=== PATIENT | male | born 1990 | race Caucasian/White ===

== ENCOUNTER 2023-09-24 18:14 | Emergency (ER) | payer BC, SELFPAY ==
[2023-09-24 18:29] VITALS: BP 153/94; PULSE 83; RESP 16; TEMP 38.3; O2SAT 99
--- NOTE | 2023-09-24 18:45 | ED.FEVER ---
HPI - Fever General Chief Complaint: Fever Stated Complaint: fever,throwing up Time Seen by Provider: 09/24/23 18:45 Source: patient Mode of arrival: ambulatory Limitations: no limitations History of Present Illness HPI Narrative: 32-year-old male presents with complaint fatigue, fever, body aches, chills, nasal congestion for 2 days. Today at work was nauseated having dry heaves. Not nauseated at this time. Was exposed to influenza B by his . All systems reviewed and negative except as noted above. Related Data Allergies Allergy/AdvReac Type Severity Reaction Status Date / Time No Known Allergies Allergy Verified 09/24/23 18:39 Review of Systems Review of Systems: CONSTITUTIONAL: reports fever, chills, or sweats. EYES: Denies visual changes, redness, or discharge. ENT: Reports rhinorrhea, congestion. Denies sore throat, or otalgia. CARDIOVASCULAR: Denies chest pain, palpitations, or edema. RESPIRATORY: Denies cough or dyspnea. GASTROINTESTINAL: Denies abdominal pain, nausea, vomiting, or diarrhea. GENITOURINARY: Denies dysuria or hematuria. SKIN: Denies rash or itching. MUSCULOSKELETAL: Denies back pain, joint pain. Reports myalgia. NEUROLOGIC: reports headache. Denies numbness, or weakness. PSYCHIATRIC: Denies anxiety or depression. All other systems reviewed are negative, except as documented in HPI. PMFSH Comments At time of signature, agree with nursing past medical, surgical, social and family history. There is no relevant family history pertinent to the presenting complaint. Exam Narrative: GENERAL: This is a well-nourished, well-developed patient, patient ill-appearing but in no acute distress HEAD: normocephalic, atraumatic. EYES: PERRL. Sclera clear/white. Vision is grossly intact. EARS: External ears normal, auditory canals clear and without drainage, TMs normal without perforation. Hearing grossly intact. NOSE: External nose normal with no obvious nasal discharge, nares without redness, no rhinorrhea. THROAT: Mucous membranes moist, posterior pharynx clear. NECK: Neck supple, non-tender without lymphadenopathy, masses or thyromegaly. CARDIOVASCULAR: Regular rate and rhythm without murmurs, gallops, or rubs. RESPIRATORY: Clear to auscultation. Breath sounds equal bilaterally. No wheezes, rales, or rhonchi. SKIN: warm, Dry, intact with no suspicious lesions or rash, good texture and turgor. NEURO: awake, alert, and oriented to person, place and time. There were no obvious focal neurologic abnormalities. EXTREMITIES: No joint tenderness, effusion, or edema noted. Course Course Level of Care: Express Care Visit Vital Signs Vital signs: Vital Signs Temperature 38.3 C H 09/24/23 18:29 Pulse Rate 83 09/24/23 18:29 Respiratory Rate 16 09/24/23 18:29 Blood Pressure 153/94 H 09/24/23 18:29 Pulse Oximetry 99 09/24/23 18:29 Oxygen Delivery Room Air 09/24/23 18:29 Temperature 38.3 C H 09/24/23 18:29 Pulse Rate 83 09/24/23 18:29 Respiratory Rate 16 09/24/23 18:29 Blood Pressure 153/94 H 09/24/23 18:29 Pulse Oximetry 99 09/24/23 18:29 Oxygen Delivery Room Air 09/24/23 18:29 reviewed MDM - Fever MDM Narrative Medical decision making narrative: Patient is aware of diagnosis, understands and agrees to treatment plan. Anticipatory guidance given. Patient agrees to follow-up as directed and is aware of reasons to seek care at the emergency department. Portions of this record may have been created with voice recognition software Differential Diagnosis Differential diagnosis: Likely viral infection Lab Data Labs: Influenza A Screen Negative Reference Range: Negative Influenza B Screen Negative Reference Range: Negative Discharge Plan Discharge Clinical Impression: Acute viral syndrome Patient Disposi
== END 2023-09-24 18:59 | disposition home or self-care (01) ==
PROVIDERS: Emergency Provider Nurse Practitioner Family
DX: B34.9 Viral infection, unspecified (principal)
CPT/HCPCS: 87804; 99203; G0463

== ENCOUNTER 2024-12-16 15:34 | Emergency (ER) | payer BC, SELFPAY ==
--- NOTE | 2024-12-16 15:40 | ED_ITS ---
HPI - Nausea/Vomiting/Diarrhea General Chief complaint: Nausea/Vomiting/Diarrhea Stated complaint: threw up, stomach hurts Time Seen by Provider: 12/16/24 15:38 Source: patient Mode of arrival: ambulatory Limitations: no limitations History of Present Illness HPI Narrative: José Miguel is a 34-year-old male patient presenting to the clinic today with complaints of nausea, vomiting and abdominal cramping. He reports his symptoms started around 4:00 a.m. this morning while he was at work. Had a go home from work. States he woke up at 1:00 a.m. this afternoon and was still having some abdominal cramping and nausea. [place] feverish but took his temperature and was normal. No diarrhea. No chest pain or shortness of breath. No URI symptoms Related Data Allergies Allergy/AdvReac Type Severity Reaction Status Date / Time No Known Allergies Allergy Verified 12/16/24 15:36 Review of Systems Review of Systems: Pertinent positives per HPI. Patient denies any fever, chills, rash, headache, visual changes, dizziness, cough, shortness of breath, chest pain, palpitations, diarrhea, constipation, or any urinary issues. KOBYSH Comments At the time of my signature, I reviewed and agree with the nursing past medical, surgical, social, and family history. There is no relevant family history pertinent to the patient complaint. Exam Narrative: General: Well-developed, obese, in no apparent distress Head: Normocephalic, atraumatic Eyes: Pupils equally round and reactive to light bilaterally, EOM intact, sclera and conjunctive clear, no discharge, lids normal Ears: TMs intact and clear, ear canals clear, no drainage, grossly hearing normal. Nose: Nares patent, no discharge, no inflammation, no sinus tenderness. Mouth: Oral pharynx without lesions or masses, good dentition, MMM. Neck: Supple, trachea midline, no enlargement of anterior or posterior cervical nodes, no thyroid masses or goiter palpable. Cardio: Regular rate and rhythm, s1 and s2 normal, no murmur appreciated. Resp: Clear to auscultation bilaterally, no rhonchi, rales, wheezing or rubs Abdomen: Soft, pliable, bowel sounds present in all quadrants, non-tender to palpation, no organomegly, no CVAT tenderness. Course Course Emergency Course: Portions of this record may have been created with voice recognition software. Level of Care: Express Care Visit Vital Signs Vital signs: Vital Signs Temperature 36.7 C 12/16/24 15:43 Pulse Rate 79 12/16/24 15:43 Respiratory Rate 16 12/16/24 15:43 Blood Pressure 156/93 H 12/16/24 15:43 Pulse Oximetry 99 12/16/24 15:43 Oxygen Delivery Room Air 12/16/24 15:43 Temperature 36.7 C 12/16/24 15:43 Pulse Rate 79 12/16/24 15:43 Respiratory Rate 16 12/16/24 15:43 Blood Pressure 156/93 H 12/16/24 15:43 Pulse Oximetry 99 12/16/24 15:43 Oxygen Delivery Room Air 12/16/24 15:43 Vital signs reviewed MDM - Nausea/Vomiting/Diarrhea MDM Narrative Medical decision making narrative: At the time of visit patient is resting comfortably on the exam table. Patient appears to be nontoxic. Labs: Influenza testing was negative in the clinic today. Plan: I suspect patient has acute nausea vomiting with some abdominal cramping. Prescription for Zofran was sent to the pharmacy. Supportive measures were discussed with the patient and they voiced understanding discharge instructions and agrees to treatment plan. Return precautions reviewed Differential Diagnosis Differential diagnosis: Likely traveler's diarrhea, food poisoning, gastroenteritis, clostridium difficile infection, drug-induced nausea and vomiting, dehydration and other (Acute nausea and vomiting, viral send) Discharge Plan Discharge Clinical Impression: Acute nausea with nonbilious vomiting Patient Disposition: Home, Self-Care Condition: Stable Instructions: Antibiotic Form, Acute Nausea and Vomiting (ED) Additional Instructions: Take prescription medications only as prescribed-ondansetron Increase fluids and stay well hydrated Tylenol/motrin for pain/fever BRAT diet for diarrhea Clear liquids x 24 hours then advance as tolerated for nausea/vomiting Go to the ED if you develop a worsening in your condition- high fever not controlled by Tylenol or Motrin, dehydration, weakness, lethargy, shortness of breath, or chest pain. Follow up with your PCP in 3-5 days if symptoms persist. 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
[2024-12-16 15:43] VITALS: BP 156/93; PULSE 79; RESP 16; TEMP 36.7; O2SAT 99
[2024-12-16 16:17] LABS: EDINFLUASCREEN Negative (Negative); EDINFLUBSCREEN Negative (Negative)
== END 2024-12-16 16:10 | disposition home or self-care (01) ==
PROVIDERS: Emergency Provider Nurse Practitioner Family
DX: R11.2 Nausea with vomiting, unspecified (principal); I10 Essential (primary) hypertension; K21.9 Gastro-esophageal reflux disease without esophagitis
CPT/HCPCS: 87804; 99213; G0463